=== PATIENT | male | born 1945 | race Caucasian/White ===

== ENCOUNTER 2025-06-03 15:22 | Outpatient (CLI) | payer MEDICARE, SELFPAY ==
--- NOTE | ~2025-06-03 | US_ITS ---
US soft tissue groin RT 06/03/2025 16:06 Indication: Palpable area and right groin. Evaluate for hernia or mass. Procedure: Ultrasound of the right inguinal canal Comparison: No prior studies for comparison. Findings: Dynamic evaluation shows soft tissue with motility with Valsalva maneuver, suggesting reduc ibility or positional change. No discrete cystic collection, calcifications or mass is separate from the inguinal canal content. Impression: 1: Heterogeneous soft tissue within the right inguinal canal demonstrating motility during Valsalva m aneuver, consistent with reducible right inguinal hernia containing soft tissue structures, likely Preperitoneal fat, omentum or possibly bowel. Consider correlation with cross-sectional imaging. Reviewed, dictated and finalized at location A. Impression: 1: Heterogeneous soft tissue within the right inguinal canal demonstrating katja lity during Valsalva maneuver, consistent with reducible right inguinal hernia containing soft tissue structures, likely Preperitoneal fat, omentum or possibly bowel. Consider correlation with cross-s ectional imaging.
== END 2025-06-03 15:23 | disposition home or self-care (01) ==
LOC: MICIMG 15:23
PROVIDERS: PCP Family Medicine
DX: K40.90 Unilateral inguinal hernia, without obstruction or gangrene, not specified as recurrent (principal)
CPT/HCPCS: 76882

== ENCOUNTER 2025-08-13 11:29 | Outpatient (CLI) | payer MEDICARE, SELFPAY ==
--- NOTE | ~2025-08-13 | XR_ITS ---
EXAMINATION: XR clavicle BI, 08/13/2025 11:33 CDT HISTORY: M54.2 - Cervicalgia COMPARISON: No comparisons available. Findings: No acute fracture or malalignment. Moderate degenerative changes of the acromioclavicular joints Soft tissues unremarkable. Impression: No acute fracture or malalignment. Reviewed, dictated and finalized at location P. Impression: No acute fracture or malalignment.
--- NOTE | ~2025-08-13 | XR_ITS ---
[id number] Indication: M54.2 - Cervicalgia Comparison: None Findings: Moderate loss of vertebral height, no fracture or subluxation. Moderate to severe loss of disc height throughout. Soft tissues unremarkable Impression: No acute abnormality. Reviewed, dictated and finalized at location P. Impression: No acute abnormality.
== END 2025-08-13 11:30 | disposition home or self-care (01) ==
PROVIDERS: PCP Family Medicine
DX: M54.2 Cervicalgia (principal); M19.012 Primary osteoarthritis, left shoulder; M19.011 Primary osteoarthritis, right shoulder; R29.890 Loss of height
CPT/HCPCS: 72040; 73000